=== PATIENT | male | born 1985 | race Two or more races ===

== ENCOUNTER 2023-11-12 13:44 | Emergency (ER) | payer OTHER ==
[~2023-11-12] VITALS: Ht 182.9 cm; Wt 70.5 kg
[2023-11-12 13:50] VITALS: TEMP 98.3
[2023-11-12] MEDS: ChlordiazePOXIDE HCL 25 MG CAPSULE PO ONE (14:24)
[2023-11-12] MEDS: IBUPROFEN 600 MG TABLET PO ONE (14:24)
[2023-11-12 15:30] VITALS: BP 142/92; PULSE 101; RESP 18
== END 2023-11-12 15:55 | disposition home or self-care (01) ==
LOC: EMS 13:47
DX: S82.401A Unspecified fracture of shaft of right fibula, initial encounter for closed fracture (principal); F17.210 Nicotine dependence, cigarettes, uncomplicated; X58.XXXA Exposure to other specified factors, initial encounter; Y93.89 Activity, other specified; Y92.89 Other specified places as the place of occurrence of the external cause; Y99.8 Other external cause status
CPT/HCPCS: 29505; 99284; 73562-TC; 73590-TC; 73610-TC; Z7502; Z7610